=== PATIENT | male | born 1990 | race Caucasian/White ===

== ENCOUNTER 2022-09-12 18:43 | Emergency (ER) | payer OTHER, SELFPAY ==
--- NOTE | 2022-09-12 18:47 | ED.LOWEXIN ---
HPI - Extremity Injury (Lower) General Chief Complaint: Skin/Abscess/Foreign Body Stated Complaint: Left Foot Pain Time Seen by Provider: 09/12/22 19:43 Source: patient and RN notes reviewed Mode of arrival: ambulatory Limitations: no limitations History of Present Illness HPI Narrative: 32-year-old male presents concern for pain, redness to the base of the 1st digit of the left foot. Reports symptoms started Friday. He denies injury, trauma, swelling. Reports he had gout couple of years ago. He denies fever, aches, chills, sweats MD complaint: other (Foot pain) Related Data Allergies Allergy/AdvReac Type Severity Reaction Status Date / Time No Known Allergies Allergy Unverified 03/11/17 14:34 Review of Systems Review of Systems: CONSTITUTIONAL: Denies malaise, chills, sweats, or fever. SKIN: Denies rash or itching, open skin, laceration, abrasion, redness, warmth, swelling. MUSCULOSKELETAL: Reports left foot pain NEUROLOGIC: Denies numbness, weakness All systems reviewed & are unremarkable except as noted in HPI and below PMFSH Comments At time of signature, agree with nursing past medical, surgical, social and family history. There is no relevant family history pertinent to the presenting complaint Exam Narrative: GENERAL: Well-appearing, well-nourished, and in no acute distress. HEAD: Normocephalic, atraumatic. EYES: PERRLA, conjunctivae clear NECK: Supple. CHEST: Speaks in full sentences. No respiratory distress. HEART: Regular rate and rhythm. Normal and equal peripheral pulses. EXTREMITIES: Left foot and digits have normal strength and sensation, normal range of motion. Very mild edema and ecchymosis concentrated the base of the 1st digit. No ecchymosis. 5/5 strength with digit flexion and extension. Normal sensation with sensitivity to light touch and pain. No point tenderness. No open wounds, no skin tenting, no devitalized tissue or atrophy, no trophic changes, no obvious deformity, alignment normal, nearby joints and structures intact. Distal pulses palpable and equal bilaterally, skin warm, dry, pink. Capillary refill less than 3 seconds. SKIN: Warm, dry, no rash. NEURO: Alert and oriented x3. PSYCH: Normal mood and affect Course Course Emergency Course: Patient is aware of diagnosis, understands and agrees to treatment plan. Anticipatory guidance given. Patient agrees to follow-up as directed and is aware of reasons to seek care at the emergency department. Portions of this record may have been created with voice recognition software Level of Care: Express Care Visit Vital Signs Vital signs: Reviewed. MDM - Extremity Injury (Lower) MDM Narrative Medical decision making narrative: Exam findings show no acute concerns or changes; patient is non-toxic appearing and is in no distress. Patient is appropriate for outpatient treatment and follow-up. Differential Diagnosis Differential diagnosis: Likely other (Foot fracture, cellulitis, gout) Critical Care Time Critical Care Time Critical Care Time: No Discharge Plan Discharge Clinical Impression: Gout Patient Disposition: Home, Self-Care Condition: Stable Instructions: Low Purine Diet (ED), Gout (ED) Additional Instructions: 1) Please follow-up with your primary care doctor in the next 1-2 days. 2) If you have any urgent concerns please go to the ER. 3) Please take medications as prescribed, take Tylenol for pain. 4) Please read and follow information included in discharge instructions. Prescriptions: New colchicine 0.6 mg capsule See Rx Instructions .ROUTE .COMPLEX Qty: 3 0RF Rx Instructions: take 2 caps now, then one hour later take one cap prednisone 50 mg tablet 50 mg PO DAILY 5 Days Qty: 5 0RF Follow-up/Referrals: Richard Amaro MD [Primary Care Provider] - Time of Disposition: 19:53
[2022-09-12 18:56] VITALS: BP 136/90; PULSE 82; RESP 16; TEMP 37.2; O2SAT 99
== END 2022-09-12 20:04 | disposition home or self-care (01) ==
PROVIDERS: Emergency Provider Nurse Practitioner; PCP Emergency Medicine
DX: M10.9 Gout, unspecified (principal)
CPT/HCPCS: 99203; G0463

== ENCOUNTER 2023-01-23 09:00 | Emergency (ER) | payer OTHER, SELFPAY ==
[2023-01-23 09:05] VITALS: BP 146/89; PULSE 71; RESP 16; TEMP 36.4; O2SAT 98
--- NOTE | 2023-01-23 09:10 | ED.EXTPRO ---
HPI - Extremity Problem General Chief complaint: Extremity Problem,Nontraumatic Stated complaint: Left foot (gout) Time Seen by Provider: 01/23/23 09:10 Source: patient Mode of arrival: ambulatory Limitations: no limitations History of Present Illness HPI Narrative: 32-year-old male presents with complaint of redness, swelling, pain to left foot for 2 days. Reports history of gout to left great toe. States this pain feels very similar. States he recently ate more red meat than usual is concerned that this is what is causing his gout symptoms. Patient does not have a primary care physician. All systems reviewed and negative except as noted above. Related Data Allergies Allergy/AdvReac Type Severity Reaction Status Date / Time No Known Allergies Allergy Verified 01/23/23 09:11 Review of Systems Review of Systems: CONSTITUTIONAL: Denies fever, chills, or sweats. EYES: Denies visual changes, redness, or discharge. ENT: Denies rhinorrhea, congestion, sore throat, or otalgia. CARDIOVASCULAR: Denies chest pain, palpitations, or edema. RESPIRATORY: Denies cough or dyspnea. GASTROINTESTINAL: Denies abdominal pain, nausea, vomiting, or diarrhea. GENITOURINARY: Denies dysuria or hematuria. SKIN: Denies rash or itching. MUSCULOSKELETAL: Denies back pain, joint pain, or myalgia. Reports pain, redness and swelling to left foot. NEUROLOGIC: Denies headache, numbness, or weakness. PSYCHIATRIC: Denies anxiety or depression. All other systems reviewed are negative, except as documented in HPI. PMFSH Comments At time of signature, agree with nursing past medical, surgical, social and family history. There is no relevant family history pertinent to the presenting complaint. Exam Narrative: GENERAL: This is a well-nourished, well-developed patient, in no apparent distress. HEAD: normocephalic, atraumatic. EYES: PERRL. Sclera clear/white. Vision is grossly intact. EARS: External ears normal NOSE: External nose normal NECK: Neck supple, non-tender without lymphadenopathy, masses or thyromegaly. CARDIOVASCULAR: Regular rate and rhythm without murmurs, gallops, or rubs. RESPIRATORY: Clear to auscultation. Breath sounds equal bilaterally. No wheezes, rales, or rhonchi. SKIN: warm, Dry, intact with no suspicious lesions or rash, good texture and turgor. NEURO: awake, alert, and oriented to person, place and time. There were no obvious focal neurologic abnormalities. EXTREMITIES: No joint tenderness, effusion. erythema and warmth to dorsal aspect L foot with mild swelling. tender on palpation. Course Course Level of Care: Express Care Visit Vital Signs Vital signs: Vital Signs Temperature 36.4 C 01/23/23 09:05 Pulse Rate 71 01/23/23 09:05 Respiratory Rate 16 01/23/23 09:05 Blood Pressure 146/89 H 01/23/23 09:05 Pulse Oximetry 98 01/23/23 09:05 Oxygen Delivery Room Air 01/23/23 09:05 Temperature 36.4 C 01/23/23 09:11 Pulse Rate 71 01/23/23 09:11 Respiratory Rate 16 01/23/23 09:11 Blood Pressure 146/89 H 01/23/23 09:11 Pulse Oximetry 98 01/23/23 09:11 Oxygen Delivery Room Air 01/23/23 09:11 Reviewed MDM - Extremity (Nontraumatic) MDM Narrative Medical decision making narrative: Patient is aware of diagnosis, understands and agrees to treatment plan. Anticipatory guidance given. Patient agrees to follow-up as directed and is aware of reasons to seek care at the emergency department. Portions of this record may have been created with voice recognition software Discharge Plan Discharge Clinical Impression: Gout Qualifiers: Gout site: foot Encounter type: initial encounter Chronicity: acute Laterality: left Patient Disposition: Home, Self-Care Condition: Stable Instructions: Gout (ED) Additional Instructions: Take medications as prescribed. Take ibuprofen every 6 to 8 hours as needed for pain. Elevate when at rest. See your doctor if pain not improvi
[2023-01-23 09:11] VITALS: BP 146/89; PULSE 71; RESP 16; TEMP 36.4; O2SAT 98
== END 2023-01-23 09:20 | disposition home or self-care (01) ==
PROVIDERS: Emergency Provider Nurse Practitioner Family
DX: M10.9 Gout, unspecified (principal)
CPT/HCPCS: 99213; G0463

== ENCOUNTER 2023-08-18 18:53 | Emergency (ER) | payer OTHER, SELFPAY ==
[2023-08-18 19:32] VITALS: BP 131/88; PULSE 77; RESP 20; TEMP 36.7; O2SAT 98
--- NOTE | 2023-08-18 20:36 | ED.EYEPROB ---
HPI - Eye Problem General Chief complaint: Eye Problems Stated complaint: Left Eye Problem Time Seen by Provider: 08/18/23 20:10 Source: patient, RN notes reviewed and old records reviewed Mode of arrival: ambulatory Limitations: no limitations History of Present Illness HPI Narrative: 33 year old male presents to [facility] care with complaints of 1 day history of redness irritation and yellow green drainage to his left eye with no injury. Patient reports some itchy sensation and irritating feel to his left eye, denies any sharp pain or any visual changes. Patient reports that he has been applying clear eye drops to his left eye without improvement. he reports no fevers or any URI symptoms. MD chief complaint: eye redness and other (drainage) Onset (ago): day(s) (1) Location: left eye Severity: moderate Treatments Prior to Arrival: OTC eye drops Related Data Allergies Allergy/AdvReac Type Severity Reaction Status Date / Time No Known Allergies Allergy Verified 08/18/23 19:38 Review of Systems Review of Systems: CONSTITUTIONAL: Denies fever, chills, or sweats. EYES: Denies visual changes. Reports redness,, irritation, discharge. to his left eye ENT: Denies rhinorrhea, congestion, sore throat, or otalgia. CARDIOVASCULAR: Denies chest pain, palpitations, or edema. RESPIRATORY: Denies cough or dyspnea. SKIN: Denies rash or itching. NEUROLOGIC: Denies headache All systems reviewed & are unremarkable except as noted in HPI and below PMFSH Past Medical History Medical History (Updated 08/20/23 @ 10:08 by Leighann Staley NP) Anxiety and depression Back pain Gout Pancreatitis Social History Social History (Updated 08/20/23 @ 10:11 by Leighann Staley NP) Smoking status: Never smoker Alcohol intake: unknown Substance use type: does not use Living arrangements: with family Gender identity (if verbalized by the patient): Male Comments At time of signature, agree with nursing past medical, surgical, social and family history. There is no relevant family history pertinent to the presenting complaint Exam Narrative: GENERAL: Well-appearing, well-nourished, and in no acute distress. HEAD: Normocephalic, atraumatic. EYES: PERRLA and EOMI. Upper and lower eyelids unremarkable. No periorbital cellulitis noted. Sclera and conjunctivae injected left eye with yellowish green drainage, no vision changes or any sharp pain to his left eye ENT: Nares clear, no rhinorrhea or epistaxis. Mucous membranes moist.SAO2 98% on room air NECK: Supple. no lymphadenopathy CHEST: Clear to auscultation. No respiratory distress. HEART: Regular rate and rhythm. No murmur heard. Normal peripheral pulses. SKIN: Warm, dry, no rash. NEURO: No focal deficits. Alert and oriented x3. Course Course Emergency Course: Patient is aware of diagnosis, understands and agrees to treatment plan. Anticipatory guidance given. Patient agrees to follow-up as directed and is aware of reasons to seek care at the emergency department. Portions of this record may have been created with voice recognition software Level of Care: Express Care Visit Vital Signs Vital signs: Vital Signs Temperature 36.7 C 08/18/23 19:32 Pulse Rate 77 08/18/23 19:32 Respiratory Rate 20 08/18/23 19:32 Blood Pressure 131/88 08/18/23 19:32 Pulse Oximetry 98 08/18/23 19:32 Oxygen Delivery Room Air 08/18/23 19:32 Temperature 36.7 C 08/18/23 19:32 Pulse Rate 77 08/18/23 19:32 Respiratory Rate 20 08/18/23 19:32 Blood Pressure 131/88 08/18/23 19:32 Pulse Oximetry 98 08/18/23 19:32 Oxygen Delivery Room Air 08/18/23 19:32 Reviewed MDM - Eye Problem MDM Narrative Medical decision making narrative: Consideration of the following conditions may be warranted for the presenting problem, they are not final diagnoses: Bacterial conjunctivitis, allergic conjunctivitis, viral conjunctivitis, foreign body, blepharitis, chalazion, ho
== END 2023-08-18 20:45 | disposition home or self-care (01) ==
PROVIDERS: Emergency Provider Registered Nurse
DX: H10.32 Unspecified acute conjunctivitis, left eye (principal); H10.9 Unspecified conjunctivitis
CPT/HCPCS: 99213; G0463